=== PATIENT | female | born 1995 | race Caucasian/White ===

== ENCOUNTER 2018-03-14 13:15 | Emergency (ER) | payer BC ==
[2018-03-14 14:02] VITALS: BP 112/67
--- NOTE | 2018-03-14 14:14 | UC ---
Throat Pain/Nasal Damon HPI - HPI Summary HPI Summary: left side sore throat for about one week, no fevers, cough nausea vomiting or diarrhea, did have a flu vaccine - History of Current Complaint Chief Complaint: UCGeneralIllness Stated Complaint: SORE THROAT Time Seen by Provider: 03/14/18 14:13 Hx Obtained From: Patient Hx Last Menstrual Period: 02/28/18 ?: No Onset/Duration: Sudden Onset, Lasting Weeks - 1, Still Present Pain Intensity: 5 Pain Scale Used: 0-10 Numeric Cough: None Associated Signs & Symptoms: Positive: Negative - Allergies/Home Medications Allergies/Adverse Reactions: Allergies Allergy/AdvReac Type Severity Reaction Status Date / Time mold Allergy Congestion Verified 03/14/18 13:56 dust mites Allergy Congestion Uncoded 03/14/18 13:56 Home Medications: Home Medications Doxylamine Succinate [Unisom] 25 mg PO BEDTIME 03/14/18 [History Confirmed 03/14] Escitalopram Oxalate [Lexapro] 20 mg PO DAILY 03/14/18 [History Confirmed ] Hemp Oil 1 dose PO DAILY 03/14/18 [History Confirmed 03/14/18] PMH/Surg Hx/FS Hx/Imm Hx Previously Healthy: No Psychological History: Anxiety - Surgical History Surgical History: Yes Surgery Procedure, Year, and Place: tonsillectomy - Family History Known Family History: Positive: None - Social History Occupation: Student Lives: With Family Alcohol Use: None Substance Use Type: None Smoking Status (MU): Never Smoked Tobacco Review of Systems All Other Systems Reviewed And Are Negative: Yes Constitutional: Positive: Negative Skin: Positive: Negative Eyes: Positive: Negative ENT: Positive: Sore Throat Respiratory: Positive: Negative Cardiovascular: Positive: Negative Gastrointestinal: Positive: Negative Genitourinary: Positive: Negative Motor: Positive: Negative Neurovascular: Positive: Negative Musculoskeletal: Positive: Negative Neurological: Positive: Negative Psychological: Positive: Negative Is Patient Immunocompromised?: No Physical Exam Triage Information Reviewed: Yes Appearance: Well-Appearing, No Pain Distress, Well-Nourished Vital Signs: Initial Vital Signs Temp 98.4 F 03/14/18 13:57 Pulse 86 03/14/18 13:57 Resp 16 03/14/18 13:57 BP 112/67 03/14/18 13:57 Pulse Ox 100 03/14/18 13:57 Vital Signs Reviewed: Yes Eye Exam: Normal Eyes: Positive: Conjunctiva Clear ENT Exam: Normal ENT: Positive: Normal ENT inspection, Hearing grossly normal, Pharynx normal, TMs normal, Uvula midline. Negative: Nasal congestion, Tonsillar swelling, Tonsillar exudate, Trismus, Muffled voice, Hoarse voice, Dental tenderness, Sinus tenderness Dental Exam: Normal Neck exam: Normal Neck: Positive: Supple, Nontender, No Lymphadenopathy Respiratory Exam: Normal Respiratory: Positive: Chest non-tender, Lungs clear, Normal breath sounds, No respiratory distress, No accessory muscle use Cardiovascular Exam: Normal Cardiovascular: Positive: RRR, Pulses Normal, Brisk Capillary Refill Musculoskeletal Exam: Normal Musculoskeletal: Positive: Strength Intact, ROM Intact, No Edema Neurological Exam: Normal Neurological: Positive: Alert, Muscle Tone Normal Psychological Exam: Normal Skin Exam: Normal Diagnostics - Laboratory Diagnostic Studies Completed/Ordered: RST (-) Throat Pain/Nasal Course/Dx - Course Course Of Treatment: increase fluids, tylenol, ibuprofen prn pain, may use otc phenol spray for comfort, elderberry and or zinc may be helpful in decreasing the duration of symptoms - Differential Dx/Diagnosis Provider Diagnosis: Acute viral pharyngitis Discharge - Sign-Out/Discharge Documenting (check all that apply): Patient Departure All imaging exams completed and their final reports reviewed: No Studies - Discharge Plan Condition: Stable Disposition: HOME Patient Education Materials: Acetaminophen (By mouth), Ibuprofen (By mouth), Pharyngitis (ED), Viral Syndrome (ED) Referrals: Brayden Bennett MD [Primary Care Provider] - If Needed - Billing Disposition and Condition Condition: STABLE Disposition: Home
== END 2018-03-14 14:29 | disposition home or self-care (01) ==
LOC: UCCORT 13:15
DX: J02.9 Acute pharyngitis, unspecified (principal); Z91.09 Other allergy status, other than to drugs and biological substances
CPT/HCPCS: 87651; 99201; G0463